=== PATIENT | female | born 1985 | race Caucasian/White ===

== ENCOUNTER 2017-02-19 02:22 | Emergency (ER) | payer BC, OTHER ==
[2017-02-19] MEDS ORDERED: Sodium Chloride 0.9% 2.5 ML Syringe FLUSH PRN (02:47)
[2017-02-19] MEDS ORDERED: Sodium Chloride 0.9% 1,000 ML IV ONE (02:47)
[2017-02-19] MEDS ORDERED: Sodium Chloride 0.9% 10 ML Syringe FLUSH PRN (02:47)
[2017-02-19] MEDS ORDERED: Ondansetron 4 MG/2 ML SDV IVPUSH ONE (02:47)
[2017-02-19] MEDS ORDERED: Pantoprazole 40 MG Vial IVPUSH ONE (02:51)
--- NOTE | 2017-02-19 03:03 | EDM.PDOC ---
ED HPI GENERAL MEDICAL PROBLEM - General Chief Complaint: Behavioral/Psych Stated Complaint: ETOH AND PILLS Time Seen by Provider: 02/19/17 02:32 - History of Present Illness INITIAL COMMENTS - FREE TEXT/NARRATIVE: HISTORY AND PHYSICAL: History of present illness: The patient is a 31-year-old female who presents with police and her best friend expressing suicidal ideation and drinking all afternoon and evening and taking an intentional overdose of ibuprofen. The patient states she did take # 250 tablets of 200 mg of ibuprofen about 1:30 this morning ; initially she told the nurse that it was over many hours she took this amount of medication but on my conversation she said she took it in a very short period of time. She states that she took his overdose right before she called her friend and she called her at 1:30 AM. She has had several episodes of vomiting since that time and says she feels nauseated and sick to her stomach. She says she's had multiple cocktails of alcoholic beverages throughout the day starting in the afternoon and through the evening. The patient says that she follows here at [facility] with Dr. Hudson and has been on Wellbutrin for over a year. She was placed on this for depression and this child is currently 1-year- old. She states she has an appointment with Dr. Hudson on Tuesday but she doesn't feel that the medication is helping her much and she thinks she is having trouble focusing and might need Adderall. With tonight's events she denies co- ingestion of other medications. When directly asked if she took this in attempt to harm herself she states "yes". She told the nurse privately that she if she had the opportunity she would "hang herself" but she did not choose to do that because her son is at home and she doesn't want him to see that. She also told the nurse that if the police detective and her best friend are present in the room but should also openly state that she wants to hurt herself. With my questioning she's been somewhat evasive. According to her best friend at bedside she knew she was having trouble with depression but approximately 2 weeks ago she got a phone call, when the patient was out of town at a wedding, and the patient spoke to her expressing suicidal ideation for the first time. The friend has been very worried about her clinical state since that time realize it was accelerated this evening with tonight the events. Initially the patient did not want to come for treatment by her best friend convinced her that she needed help. The patient states she's been eating and drinking normally without any nausea vomiting or diarrhea preceding these events and has had no fever chills chest pain shortness of breath or upper respiratory symptoms. She states she has an IUD and denies . She denies any recent trauma and has no head neck or back pain Patient states she has been compliant with her Wellbutrin and took her last pill today and needs to get a refill. The friend states that she thinks that the patient has been taking some of the boyfriend's Adderall sporadically but not all. This a been over the last few weeks. Review of systems: As per history of present illness and below otherwise all systems reviewed and negative. Past medical history: As per history of present illness and as reviewed below otherwise noncontributory. Surgical history: As per history of present illness and as reviewed below otherwise noncontributory. Social history: No reported history of drug or alcohol abuse. Family history: As per history of present illness and as reviewed below otherwise noncontributory. Physical exam: General: Well-developed well-nourished female who is nontoxic and sulfa alcohol on her breath. She ambulates without ataxia moving all extremities and is cooperative. Vital signs have been noted by me HEENT: Atraumatic, normocephalic, pupils reactive, sclera are injected, negative for conjunctival pallor or scleral icterus, mucous membranes moist, throat clear, neck supple, nontender, trachea midline. Lungs: Clear to auscultation, breath sounds equal bilaterally, chest nontender. Heart: S1S2, regular, negative for clicks, rubs, or JVD. Abdomen: Soft, nondistended, nontender. Negative for masses or hepatosplenomegaly. Negative for costovertebral tenderness. Pelvis: Stable nontender. Genitourinary: Deferred. Rectal: Deferred. Extremities: Atraumatic, negative for cords or calf pain. Neurovascular unremarkable. Full range of motion without any defects or deficits Neuro: Awake, alert, oriented. Patient speaks with slight slurred but is otherwise cooperative and neurologically intact. Motor and sensory unremarkable throughout. Exam nonfocal. Back: There are no midline step-offs or defects of the cervical thoracic or lumbar spine no posterior rib tenderness. Diagnostics: EKG CBC CMP EtOH level Tylenol aspirin levels TSH UA UCG UDS Therapeutics: IV fluids Zofran Protonix 0252: Poison control was contacted and agrees with my care plan. They recommended supportive measures as we are instituting and states that in high doses of nonsteroidal anti-inflammatories can cause a metabolic acidosis and sometimes the seizures. He recommends medical observation for 4-6 hours and a repeat chemistry profile several hours after my first one to reassess for any metabolic acidosis. 0342: Case was discussed with the psychiatrist at [facility] in [place], Dr. Lane; she accepts the patient for transfer and is aware of the lab tests that we have performed. She is also aware of the pending urine tests and TSH. 0348: Case was discussed with the ER physician Dr. Rodriguez who also accepts the patient for transfer to the ER. He is aware of poison control's recommendation to repeat the chemistry profile on arrival to assure that no acidosis is progressing. I've also discussed all testing results with the patient and brother and best friend at bedside. They're aware of the care plan for transfer and the patient states that she understands this but is intermittently sleeping throughout the course of my conversation. We are currently going to straight catheter the patient for the urine sample and we will forward those results when available. Ambulance has been contacted for transfer. Impression: Intentional overdose of ibuprofen with alcohol intoxication, suicidal ideation history of depression Definitive disposition and diagnosis as appropriate pending reevaluation and review of above. - Related Data Allergies Allergy/AdvReac Type Severity Reaction Status Date / Time diphenhydramine HCl Allergy Difficulty Verified 02/19/17 02:27 [From Benadryl] Breathing Sulfa (Sulfonamide Allergy Hives Verified 02/19/17 02:27 Antibiotics) Home Meds: Home Meds LORazepam 0.5 mg PO ASDIRECTED PRN 05/20/16 [History] buPROPion [Wellbutrin SR] 300 mg PO DAILY 05/20/16 [History] Ibuprofen [Motrin] 800 mg PO ASDIRECTED PRN 02/19/17 [History] valACYclovir [Valtrex] 500 mg PO DAILY 02/19/17 [History] Past Medical History HEENT History: Reports: None Cardiovascular History: Reports: None Respiratory History: Reports: None, Other (See Below) Other Respiratory History: pulmonary infiltrates Gastrointestinal History: Reports: None Genitourinary History: Reports: None 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 OB/BYN History: IUD, post Musculoskeletal History: Reports: None Neurological History: Reports: None Psychiatric History: Reports: Anxiety, Depression, Other (See Below) Other Psychiatric History: post psychosis Endocrine/Metabolic History: Reports: None Hematologic History: Reports: Anemia Dermatologic History: Reports: None - Infectious Disease History Infectious Disease History: Reports: None - Past Surgical History Female Surgical History: Reports: D&C Endocrine Surgical History: Reports: None Social & Family History - Family History Family Medical History: Noncontributory Cardiac: Reports: ND OBGYN: Reports: Oncologic: Reports: Cervix, Lung - Tobacco Use Smoking Status *Q: Former Smoker Used Tobacco, but Quit: Yes Month Tobacco Last Used: 1 year ago Second Hand Smoke Exposure: No - Recreational Drug Use Recreational Drug Use: No ED ROS GENERAL - Review of Systems Review Of Systems: ROS reveals no pertinent complaints other than HPI. ED EXAM, GENERAL - Physical Exam Exam: See Below (See dictation) Course - Vital Signs Last Recorded V/S: Last Vital Signs Temp 36.6 C 02/19/17 02:27 Pulse 86 02/19/17 03:32 Resp 16 02/19/17 03:32 BP 114/66 02/19/17 03:32 Pulse Ox 100 02/19/17 03:32 - Orders/Labs/Meds Orders: Active Orders 24 hr Category Date Time Status Blood Glucose Check, Bedside [RC] ONETIME Care 02/19/17 02:46 Active EKG Documentation Completion [RC] STAT Care 02/19/17 02:46 Active DRUG SCREEN, URINE [URCHEM] Stat Lab 02/19/17 02:47 Uncollected HCG QUALITATIVE,URINE [URCHEM] Stat Lab 02/19/17 02:47 Uncollected UA W/MICROSCOPIC [URIN] Stat Lab 02/19/17 02:47 Uncollected Sodium Chloride 0.9% [Saline Flush] Med 02/19/17 02:47 Active 10 ml FLUSH ASDIRECTED PRN Sodium Chloride 0.9% [Saline Flush] Med 02/19/17 02:47 Active 2.5 ml FLUSH ASDIRECTED PRN Saline Lock Insert [OM.PC] Stat Oth 02/19/17 02:46 Ordered Medication Orders Sodium Chloride (Saline Flush) 10 ml FLUSH ASDIRECTED PRN PRN Reason: Keep Vein Open Last Admin: 02/19/17 02:58 Dose: 10 ml Sodium Chloride (Saline Flush) 2.5 ml FLUSH ASDIRECTED PRN PRN Reason: Keep Vein Open Last Admin: 02/19/17 02:58 Dose: 2.5 ml Labs: Laboratory Tests 02/19/17 02/19/17 Range/Units 02:57 02:57 WBC 8.64 (4.0-11.0) K/uL RBC 4.63 (4.30-5.90) M/uL Hgb 13.3 (12.0-16.0) g/dL Hct 39.9 (36.0-46.0) % MCV 86.2 (80.0-98.0) fL MCH 28.7 (27.0-32.0) pg MCHC 33.3 (31.0-37.0) g/dL RDW Std Deviation 41.7 (28.0-62.0) fl RDW Coeff of Katie 13 (11.0-15.0) % Plt Count 425 H (150-400) K/uL MPV 9.70 (7.40-12.00) fL Neut % (Auto) 57.4 (48.0-80.0) % Lymph % (Auto) 35.3 (16.0-40.0) % [place] % (Auto) 5.7 (0.0-15.0) % Eos % (Auto) 1.4 (0.0-7.0) % Baso % (Auto) 0.2 (0.0-1.5) % Neut # (Auto) 5.0 (1.4-5.7) K/uL Lymph # (Auto) 3.1 H (0.6-2.4) K/uL [place] # (Auto) 0.5 (0.0-0.8) K/uL Eos # (Auto) 0.1 (0.0-0.7) K/uL Baso # (Auto) 0.0 (0.0-0.1) K/uL Nucleated RBC % 0.0 /100WBC Nucleated RBCs # 0 K/uL Sodium 142 (136-146) mmol/L Potassium 3.4 L (3.5-5.1) mmol/L Chloride 106 (98-110) mmol/L Carbon Dioxide 20 L (21-31) mmol/L BUN 8 (6.0-23.0) mg/dL Creatinine 0.9 (0.6-1.5) mg/dL Est Cr Clr Drug Dosing TNP Estimated GFR (MDRD) > 60.0 ml/min Glucose 98 (60-110) mg/dL Calcium 9.0 (8.8-10.8) mg/dL Total Bilirubin 0.3 (0.1-1.5) mg/dL AST 18 (5-40) IU/L ALT 21 (8-54) IU/L Alkaline Phosphatase 50 (40-150) Total Protein 7.7 (6.0-8.0) g/dL Albumin 4.8 (3.5-5.0) g/dL Globulin 2.9 (2.0-3.5) g/dL Albumin/Globulin Ratio 1.7 (1.3-2.8) TSH 3rd Generation 2.30 (0.47-5.0) uIU/mL Salicylates < 5.0 (0-20) mg/dL Acetaminophen < 3.0 ug/mL Ethyl Alcohol 149.4 mg/dL Meds: Medications Generic Name Dose Route Start Last Admin Trade Name Freq PRN Reason Stop Dose Admin Sodium Chloride 10 ml 02/19/17 02:47 02/19/17 02:58 Saline Flush FLUSH 10 ml ASDIRECTED PRN Administration Keep Vein Open Sodium Chloride 2.5 ml 02/19/17 02:47 02/19/17 02:58 Saline Flush FLUSH 2.5 ml ASDIRECTED PRN Administration Keep Vein Open Discontinued Medications Generic Name Dose Route Start Last Admin Trade Name Freq PRN Reason Stop Dose Admin Sodium Chloride 1,000 mls @ 999 mls/hr 02/19/17 02:47 02/19/17 02:58 Normal Saline IV 02/19/17 03:47 999 mls/hr STAT ONE Administration Ondansetron HCl 4 mg 02/19/17 02:47 02/19/17 02:59 Zofran IVPUSH 02/19/17 02:48 4 mg ONETIME ONE Administration Pantoprazole Sodium 80 mg 02/19/17 02:51 02/19/17 02:59 Protonix Iv IVPUSH 02/19/17 02:52 80 mg .BOLUS ONE Administration Departure - Departure Time of Disposition: 04:00 Disposition: DC/Tfer to Psych Hosp/Unit 65 Condition: good Clinical Impression: Alcohol intoxication Qualifiers: Complication of substance-induced condition: uncomplicated Qualified Code(s): F10.920 - Alcohol use, unspecified with intoxication, uncomplicated Drug overdose, intentional Qualifiers: Encounter type: initial encounter Qualified Code(s): T50.902A - Poisoning by unspecified drugs, medicaments and biological substances, intentional self-harm , initial encounter - Discharge Information Forms: ED Department Discharge - My Orders Last 24 Hours: My Active Orders 02/19/17 02:46 Blood Glucose Check, Bedside [RC] ONETIME EKG Documentation Completion [RC] STAT Saline Lock Insert [OM.PC] Stat 02/19/17 02:47 DRUG SCREEN, URINE [URCHEM] Stat HCG QUALITATIVE,URINE [URCHEM] Stat UA W/MICROSCOPIC [URIN] Stat Sodium Chloride 0.9% [Saline Flush] 10 ml FLUSH ASDIRECTED PRN Sodium Chloride 0.9% [Saline Flush] 2.5 ml FLUSH ASDIRECTED PRN - Assessment/Plan Last 24 Hours: My Active Orders 02/19/17 02:46 Blood Glucose Check, Bedside [RC] ONETIME EKG Documentation Completion [RC] STAT Saline Lock Insert [OM.PC] Stat 02/19/17 02:47 DRUG SCREEN, URINE [URCHEM] Stat HCG QUALITATIVE,URINE [URCHEM] Stat UA W/MICROSCOPIC [URIN] Stat Sodium Chloride 0.9% [Saline Flush] 10 ml FLUSH ASDIRECTED PRN Sodium Chloride 0.9% [Saline Flush] 2.5 ml FLUSH ASDIRECTED PRN
[2017-02-19 03:24] LABS: CHLORIDE,CL 106 mmol/L (98-110); SODIUM,NA 142 mmol/L (136-146)
[2017-02-19 03:29] LABS: ACETAMINOPHEN < 3.0 ug/mL
[2017-02-19 04:13] VITALS: BP 110/67
[2017-02-19] MEDS ORDERED: Sodium Chloride 0.9% 1,000 ML IV SCH (04:15)
== END 2017-02-19 04:58 ==
LOC: MW.ED 02:22
DX: T39.312A Poisoning by propionic acid derivatives, intentional self-harm, initial encounter (principal); F10.129 Alcohol abuse with intoxication, unspecified; F41.8 Other specified anxiety disorders; Z88.8 Allergy status to other drugs, medicaments and biological substances; Z79.899 Other long term (current) drug therapy; Z87.891 Personal history of nicotine dependence
CPT/HCPCS: 36415; 80053; 80305; 81001; 81025; 82962; 84443; 85025; 93005; 96361; 96374; 96375; 99285; C9113; G0480; J2405; J7040

== ENCOUNTER 2019-11-06 06:33 | Day surgery (SDC) | payer OTHER ==
[2019-11-06] MEDS ORDERED: Midazolam 1 MG/ML 2 ML SDV ONE (07:24)
[2019-11-06] MEDS ORDERED: fentaNYL 100 MCG/2 ML SDV ONE (07:24)
[2019-11-06] MEDS ORDERED: Propofol 200 MG/20 ML SDV ONE (07:24)
[2019-11-06] MEDS ORDERED: Ondansetron 4 MG/2 ML SDV ONE (07:28)
[2019-11-06] MEDS ORDERED: Dexamethasone 4 MG/ML 5 ML MDV ONE (07:28)
[2019-11-06] MEDS ORDERED: Ketorolac 30 MG/ML SDV ONE (07:28)
--- NOTE | 2019-11-06 07:34 | PCM.PREANE ---
Preanesthetic Assessment - Anesthesia/Transfusion/Family Hx Anesthesia History: Prior Anesthesia Without Reaction Family History of Anesthesia Reaction: No Transfusion History: Prior Transfusion Without Reaction - Review of Systems General: No Symptoms Pulmonary: No Symptoms Cardiovascular: No Symptoms Gastrointestinal: No Symptoms Neurological: No Symptoms Other: Reports: Anxiety - Physical Assessment NPO Status Date: 11/05/19 Vital Signs: Last Vital Signs Temp 97.5 F 11/06/19 06:47 Pulse 93 11/06/19 06:47 Resp 14 11/06/19 06:47 BP 109/70 11/06/19 06:47 Pulse Ox 97 11/06/19 06:47 Height: 5 ft 3.5 in Weight: 77.111 kg ASA Class: 2 Mental Status: Alert & Oriented x3 Airway Class: Mallampati = 2 Dentition: Reports: Ada(s) ROM/Head Extension: Full Lungs: Clear to Auscultation, Normal Respiratory Effort Cardiovascular: Regular Rate, Regular Rhythm - Lab Values: Laboratory Last Values WBC 8.91 K/uL (4.0-11.0) 11/05/19 10:50 RBC 3.73 M/uL (4.30-5.90) L 11/05/19 10:50 Hgb 11.0 g/dL (12.0-16.0) L 11/05/19 10:50 Hct 32.5 % (36.0-46.0) L 11/05/19 10:50 MCV 87.1 fL (80.0-98.0) 11/05/19 10:50 MCH 29.5 pg (27.0-32.0) 11/05/19 10:50 MCHC 33.8 g/dL (31.0-37.0) 11/05/19 10:50 RDW Std Deviation 39.6 fl (28.0-62.0) 11/05/19 10:50 RDW Coeff of Katie 12 % (11.0-15.0) 11/05/19 10:50 Plt Count 319 K/uL (150-400) 11/05/19 10:50 MPV 8.90 fL (7.40-12.00) 11/05/19 10:50 Nucleated RBC % 0.0 /100WBC 11/05/19 10:50 Nucleated RBCs # 0 K/uL 01/27/20 10:50 Blood Type B POSITIVE 11/05/19 10:50 Antibody Screen NEGATIVE 11/05/19 10:50 - Allergies Allergies/Adverse Reactions: Allergies Allergy/AdvReac Type Severity Reaction Status Date / Time diphenhydramine HCl Allergy Difficulty Verified 11/06/19 06:52 [From Benadryl] Breathing Sulfa (Sulfonamide Allergy Hives Verified 11/02/19 11:56 Antibiotics) - Blood Blood Available: No - Anesthesia Plan Pre-Op Medication Ordered: None - Acknowledgements Anesthesia Type Planned: General Anesthesia Pt an Appropriate Candidate for the Planned Anesthesia: Yes Alternatives and Risks of Anesthesia Discussed w Pt/Guardian: Yes Pt/Guardian Understands and Agrees with Anesthesia Plan: Yes Additional Comments: PMH: anxiety- took lorazepam this am, adhd, migrine PLAN: ga/lma with iv toradol PreAnesthesia Questionnaire HEENT History: Reports: None Cardiovascular History: Reports: None Respiratory History: Reports: Other (See Below) Other Respiratory History: H&P states hx of pulmonary infiltrates Gastrointestinal History: Reports: None Genitourinary History: Reports: None 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: Musculoskeletal History: Reports: None Neurological History: Reports: None Psychiatric History: Reports: ADHD, Anxiety, Depression, Other (See Below) Other Psychiatric History: hx post psychosis Endocrine/Metabolic History: Reports: None Hematologic History: Reports: Anemia, Blood Transfusion(s) Immunologic History: Reports: None Oncologic (Cancer) History: Reports: None Dermatologic History: Reports: None - Infectious Disease History Infectious Disease History: Reports: None - Past Surgical History Head Surgeries/Procedures: Reports: None HEENT Surgical History: Reports: None Cardiovascular Surgical History: Reports: None Respiratory Surgical History: Reports: None GI Surgical History: Reports: None Female Surgical History: Reports: D&C Other Female Surgeries/Procedures: hx laparoscopy, hx molar Endocrine Surgical History: Reports: None Neurological Surgical History: Reports: None Musculoskeletal Surgical History: Reports: None Oncologic Surgical History: Reports: None Dermatological Surgical History: Reports: None - SUBSTANCE USE Smoking Status *Q: Former Smoker Tobacco Use Within Last Twelve Months: No - HOME MEDS Home Medications: Home Meds LORazepam 0.5 mg PO ASDIRECTED PRN 05/20/16 [History] buPROPion [Wellbutrin SR] 300 mg PO DAILY 05/20/16 [History] valACYclovir [Valtrex] 500 mg PO DAILY 02/19/17 [History] Dextroamphetamine/Amphetamine [Adderall 10 mg Tablet] 10 mg PO BID 11/02/19 [ History] - CURRENT (IN HOUSE) MEDS Current Meds: Current Medications Discontinued Medications Dexamethasone (Dexamethasone) Confirm Administered Dose 20 mg .ROUTE .STK-MED ONE Stop: 11/06/19 07:29 Fentanyl (Sublimaze) Confirm Administered Dose 100 mcg .ROUTE .STK-MED ONE Stop: 11/06/19 07:25 Ketorolac Tromethamine (Toradol) Confirm Administered Dose 30 mg .ROUTE .STK- MED ONE Stop: 11/06/19 07:29 Lidocaine HCl (Xylocaine-Mpf 1%) Confirm Administered Dose 5 ml .ROUTE .STK-MED ONE Stop: 11/06/19 07:29 Midazolam HCl (Versed 1 Mg/Ml) Confirm Administered Dose 2 mg .ROUTE .STK-MED ONE Stop: 11/06/19 07:25 Ondansetron HCl (Zofran) Confirm Administered Dose 4 mg .ROUTE .STK-MED ONE Stop: 11/06/19 07:29 Propofol (Diprivan 20 Ml) Confirm Administered Dose 200 mg .ROUTE .STK-MED ONE Stop: 11/06/19 07:25
[2019-11-06] MEDS ORDERED: Methylergonovine 0.2 MG/1 ML Amp ONE (08:17)
--- NOTE | 2019-11-06 08:40 | PCM.OPNOTE ---
- General Post-Op/Procedure Note Date of Surgery/Procedure: 11/06/19 Operative Procedure(s): suction dilatation and curettage Findings: preop uterus 10 weeks size, boggy, sono thickened heterogenous tissue in endometrium. postop 7 weeks, firm, ultrasound no tissue, small blood in endometrium. Pre Op Diagnosis: missed Post-Op Diagnosis: Same Anesthesia Technique: General LMA Primary Surgeon: Mima Centeno Anesthesia Provider: Nishi Quesada Pathology: products of conception Fluid Replacement, Intraop: 800 EBL in mLs: 100 Complications: None Known Condition: Good
[2019-11-06] MEDS ORDERED: Atropine 0.1 MG/ML 10 ML Syringe IVPUSH PRN ×2 (08:44)
[2019-11-06] MEDS ORDERED: Albuterol 0.083% 2.5 MG/3 ML Neb Soln NEB PRN (08:44)
[2019-11-06] MEDS ORDERED: fentaNYL 100 MCG/2 ML SDV IVPUSH PRN (08:44)
[2019-11-06] MEDS ORDERED: Naloxone 0.4 MG/ML Syringe IVPUSH PRN (08:44)
[2019-11-06] MEDS ORDERED: 50% Dextrose in Water 50 ML Syringe IVPUSH PRN (08:44)
[2019-11-06] MEDS ORDERED: EPINEPHrine 1:10,000 1 MG/10 ML Syringe IVPUSH PRN (08:44)
[2019-11-06] MEDS ORDERED: HYDROmorphone 2 MG/ML Syringe IVPUSH PRN (08:45)
--- NOTE | 2019-11-06 09:27 | PCM.POSTAN ---
POST ANESTHESIA ASSESSMENT - MENTAL STATUS Mental Status: Alert, Oriented - VITAL SIGNS Vital Signs: Last Vital Signs Temp 97.0 F 11/06/19 09:10 Pulse 81 11/06/19 09:10 Resp 14 11/06/19 09:10 BP 116/73 11/06/19 09:10 Pulse Ox 98 11/06/19 09:10 - RESPIRATORY Respiratory Status: Respiratory Rate WNL, Airway Patent, O2 Saturation Stable - CARDIOVASCULAR CV Status: Pulse Rate WNL, Blood Pressure Stable - GASTROINTESTINAL GI Status: No Symptoms - POST OP HYDRATION Hydration Status: Adequate & Stable
--- NOTE | 2019-11-06 10:00 | PCM48HPAN ---
Post Anesthesia Note - EVALUATION WITHIN 48HRS OF ANESTHETIC Vital Signs in Normal Range: Yes Patient Participated in Evaluation: Yes Respiratory Function Stable: Yes Airway Patent: Yes Cardiovascular Function Stable: Yes Hydration Status Stable: Yes Pain Control Satisfactory: Yes Nausea and Vomiting Control Satisfactory: Yes Mental Status Recovered: Yes Vital Signs: Last Vital Signs Temp 97.0 F 11/06/19 09:10 Pulse 81 11/06/19 09:10 Resp 14 11/06/19 09:10 BP 116/73 11/06/19 09:10 Pulse Ox 98 11/06/19 09:10
[2019-11-06 10:32] VITALS: BP 123/74; PULSE 79
--- NOTE | 2019-11-06 10:45 | OR ---
SURGEON: Mima Centeno M.D. DATE OF PROCEDURE: 11/06/2019 PREOPERATIVE DIAGNOSES: Missed , abnormally falling HCG level. POSTOPERATIVE DIAGNOSES: Missed , abnormally falling HCG level. PROCEDURE: Suction dilatation and curettage. PRIMARY SURGEON: Mima Centeno MD. ANESTHESIA: General LMA. ESTIMATED BLOOD LOSS: 100 mL. FLUIDS: 800 mL of crystalloid. FINDINGS: Preoperatively, the uterus was 10-week size, boggy, sounded to 9 cm. Cervix was open, easily accepted a 12 mm dilator without any resistance. Postoperatively, the uterus was firm, 7-week size. Under ultrasound guidance, initially there was heterogeneous thickened tissue within the endometrium. Postoperatively, the endometrium was thin, but with some blood in the endometrial canal. COMPLICATIONS: None known. DISPOSITION: Stable to recovery. BRIEF HISTORY: This is a 34-year-old female. She presents for care with a complaint of leaking fluid and bleeding. HCG level was 50,000. Ultrasound showed thickened heterogeneous endometrium, no discrete gestational sac. HCG was repeated and was 48,000. Given the fact that she has a remote history of a molar , I did recommend proceeding with suction dilatation and curettage due to being able to get a tissue diagnosis, and she concurred. Again, due to the history of molar , I will avoid sharp curettage. Surgical risks were discussed including bleeding; infection; injury to bowel, bladder, blood vessels, uterus, or other organs; risk of Asherman syndrome; and risk of anesthesia as well as risk of thromboembolism. Understanding all these risks, she does desire to proceed. DESCRIPTION OF PROCEDURE: With the patient in dorsal lithotomy position, under general LMA analgesia, the perineum was prepped with Betadine and draped in the usual fashion for vaginal surgery. The bladder was drained. SCDs were in place and an appropriate time- out was held. Under ultrasound guidance, the procedure was performed. Bimanual examination revealed findings as noted above. Speculum was placed in the vagina. Cervix was grasped with an Allis clamp. The uterus sounded to 9 cm and a 12 mm suction curette was placed to the uterine fundus and retracted repetitively until all tissue was removed. Based on ultrasound guidance, a bimanual examination was performed. There was a small amount of bleeding. Suction and curettage were repeated one additional time. Again, ultrasound showed only blood in the endometrial canal. At this point, Methergine was given. The uterus was firm. There was minimal bleeding. All the instruments removed from the vagina. Final sponge, needle, and instrument counts were reported as correct. There were no known complications. The patient was transferred to Recovery in good condition. EMEKA ANGUIANO /[id number]
== END 2019-11-06 10:41 | disposition home or self-care (01) ==
LOC: MW.SDS 06:33
PROVIDERS: ATTEND Obstetrics & Gynecology
DX: O02.1 Missed abortion (principal); F32.9 Major depressive disorder, single episode, unspecified; F41.9 Anxiety disorder, unspecified; G43.909 Migraine, unspecified, not intractable, without status migrainosus; D64.9 Anemia, unspecified; Z87.891 Personal history of nicotine dependence; Z79.899 Other long term (current) drug therapy; Z88.2 Allergy status to sulfonamides; Z88.8 Allergy status to other drugs, medicaments and biological substances
CPT/HCPCS: 36415; 59820; 76998; 85027; 86850; 86900; 86901; J1100; J1170; J1885; J2001; J2210; J2250; J2405; J2704; J3010; 01965

== ENCOUNTER 2020-10-15 12:11 | Inpatient (IN) | payer OTHER ==
[2020-10-15] MEDS ORDERED: Carboprost Tromethamine 250 MCG/1 ML Amp IM PRN (12:44)
[2020-10-15] MEDS ORDERED: Misoprostol 200 MCG Tab PO PRN (12:44)
[2020-10-15] MEDS ORDERED: Sodium Chloride 0.9% 2.5 ML Syringe FLUSH PRN (12:44)
[2020-10-15] MEDS ORDERED: Butorphanol 1 MG/ML SDV IVPUSH PRN (12:44)
[2020-10-15] MEDS ORDERED: Sodium Chloride 0.9% 10 ML Syringe FLUSH PRN (12:44)
[2020-10-15] MEDS ORDERED: Sodium Chloride 0.9% 10 ML SDV IV PRN (12:44)
[2020-10-15] MEDS ORDERED: Water For Irrigation,Sterile 1,000 ML Container IRR PRN (12:44)
[2020-10-15] MEDS ORDERED: Nalbuphine 10 MG/1 ML Vial IVPUSH PRN (12:44)
[2020-10-15] MEDS ORDERED: Tranexamic Acid 1,000 MG in Sodium Chloride 0.9% 100 ML IV PRN (12:44)
[2020-10-15] MEDS ORDERED: Methylergonovine 0.2 MG/1 ML Amp IM PRN (12:44)
[2020-10-15] MEDS ORDERED: Lidocaine 1% 50 ML MDV INJECT PRN (12:44)
[2020-10-15] MEDS ORDERED: Oxytocin/0.9 % Sodium Chloride 30 UNIT/500 ML BAG IV SCH ×2 (12:45→13:45)
[2020-10-15] MEDS: Lactated Ringers 1,000 ML IV SCH ×4 (12:45→19:52)
[2020-10-15] MEDS ORDERED: fentaNYL 100 MCG/2 ML SDV ONE ×2 (17:49→20:35)
[2020-10-15] MEDS ORDERED: Bupivicaine/fentaNYL/NS 250 ML ONE (17:50)
[2020-10-15] MEDS ORDERED: Bupivacaine 0.25% 10 ML SDV ONE (17:51)
--- NOTE | 2020-10-15 18:23 | PCM.PREANE ---
Preanesthetic Assessment - Anesthesia/Transfusion/Family Hx Anesthesia History: Prior Anesthesia Without Reaction Family History of Anesthesia Reaction: No Transfusion History: Prior Transfusion Without Reaction - Review of Systems General: No Symptoms Pulmonary: No Symptoms Cardiovascular: No Symptoms Gastrointestinal: Abdominal Pain Neurological: No Symptoms Other: Reports: None - Physical Assessment Height: 5 ft 3 in Weight: 100.698 kg ASA Class: 2 Mental Status: Alert & Oriented x3 Airway Class: Mallampati = 2 Dentition: Reports: Normal Dentition ROM/Head Extension: Full Lungs: Clear to Auscultation, Normal Respiratory Effort - Lab Values: Laboratory Last Values WBC 10.63 K/uL (4.0-11.0) 10/15/20 12:34 RBC 3.96 M/uL (4.30-5.90) L 10/15/20 12:34 Hgb 10.2 g/dL (12.0-16.0) L 10/15/20 12:34 Hct 32.7 % (36.0-46.0) L 10/15/20 12:34 MCV 82.6 fL (80.0-98.0) 10/15/20 12:34 MCH 25.8 pg (27.0-32.0) L 10/15/20 12:34 MCHC 31.2 g/dL (31.0-37.0) 10/15/20 12:34 RDW Std Deviation 46.3 fl (28.0-62.0) 10/15/20 12:34 RDW Coeff of Katie 17 % (11.0-15.0) H 10/15/20 12:34 Plt Count 259 K/uL (150-400) 10/15/20 12:34 MPV 10.50 fL (7.40-12.00) 10/15/20 12:34 Nucleated RBC % 0.3 /100WBC 10/15/20 12:34 Nucleated RBCs # 0 K/uL 10/15/20 12:34 SARS-CoV-2 RNA (JOSE) NEGATIVE (NEGATIVE) 10/15/20 12:25 Blood Type B POSITIVE 10/15/20 12:34 Antibody Screen NEGATIVE 10/15/20 12:34 - Allergies Allergies/Adverse Reactions: Allergies Allergy/AdvReac Type Severity Reaction Status Date / Time diphenhydramine HCl Allergy Difficulty Verified 10/15/20 12:47 [From Benadryl] Breathing Sulfa (Sulfonamide Allergy Hives Verified 10/15/20 12:47 Antibiotics) - Acknowledgements Anesthesia Type Planned: Epidural Pt an Appropriate Candidate for the Planned Anesthesia: Yes Alternatives and Risks of Anesthesia Discussed w Pt/Guardian: Yes Pt/Guardian Understands and Agrees with Anesthesia Plan: Yes PreAnesthesia Questionnaire HEENT History: Reports: None Cardiovascular History: Reports: None Respiratory History: Reports: None Other Respiratory History: H&P states hx of pulmonary infiltrates Gastrointestinal History: Reports: Other (See Below) Other Gastrointestinal History: cholestasis during 2016 Genitourinary History: Reports: None 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: Musculoskeletal History: Reports: None Neurological History: Reports: Migraines Other Neuro History: migraines since 16 years old Psychiatric History: Reports: ADHD, Anxiety, Depression, Other (See Below) Other Psychiatric History: hx post psychosis Endocrine/Metabolic History: Reports: None Hematologic History: Reports: Anemia, Blood Transfusion(s) Immunologic History: Reports: None Oncologic (Cancer) History: Reports: None Dermatologic History: Reports: None - Infectious Disease History Infectious Disease History: Reports: Herpes - Past Surgical History Head Surgeries/Procedures: Reports: None HEENT Surgical History: Reports: None Cardiovascular Surgical History: Reports: None Respiratory Surgical History: Reports: None GI Surgical History: Reports: None Female Surgical History: Reports: D&C Other Female Surgeries/Procedures: hx laparoscopy, hx molar Endocrine Surgical History: Reports: None Neurological Surgical History: Reports: None Musculoskeletal Surgical History: Reports: None Oncologic Surgical History: Reports: None Dermatological Surgical History: Reports: None - SUBSTANCE USE Tobacco Use Status *Q: Former Tobacco User Tobacco Use Within Last Twelve Months: No Second Hand Smoke Exposure: No Recreational Drug Use History: No - HOME MEDS Home Medications: Home Meds Acyclovir 400 mg PO BID 10/15/20 [History] Omeprazole Magnesium [Prilosec Otc] 1 tab PO DAILY 10/15/20 [History] Pnv,Calcium 72/Iron,Carb/Folic [ Plus Iron Tablet] 1 tab PO DAILY 10/15/20 [History] Sertraline HCl 1 tab PO DAILY 10/15/20 [History] - CURRENT (IN HOUSE) MEDS Current Meds: Current Medications Butorphanol Tartrate (Stadol) 1 mg IVPUSH Q1H PRN PRN Reason: Pain Carboprost Tromethamine (Hemabate Ds) 250 mcg IM ASDIRECTED PRN PRN Reason: Post Hemorrhage Oxytocin/Sodium Chloride (Oxytocin 30 Unit/500 Ml-Ns) 30 unit in 500 mls @ 500 mls/hr IV TITRATE DASHA Tranexamic Acid 1,000 mg/ (Sodium Chloride) 110 mls @ 660 mls/hr IV ONETIME PRN PRN Reason: Bleeding Lactated Ringer's (Ringers, Lactated) 1,000 mls @ 150 mls/hr IV ASDIRECTED DASHA Last Admin: 10/15/20 18:16 Dose: 150 mls/hr Documented by: Oxytocin/Sodium Chloride (Oxytocin 30 Unit/500 Ml-Ns) 30 unit in 500 mls @ 2 mls/hr IV TITRATE DASHA; Protocol Last Titration: 10/15/20 16:40 Dose: 10 munits/min, 10 mls/hr Documented by: Lidocaine HCl (Xylocaine 1%) 50 ml INJECT ONETIME PRN PRN Reason: Laceration repair Methylergonovine Maleate (Methergine) 0.2 mg IM ASDIRECTED PRN PRN Reason: Post Hemorrhage Misoprostol (Cytotec) 200 mcg PO ONETIME PRN PRN Reason: Post Hemorrhage Nalbuphine HCl (Nubain) 10 mg IVPUSH Q1H PRN PRN Reason: Pain (severe 7-10) Sodium Chloride (Saline Flush) 10 ml FLUSH ASDIRECTED PRN PRN Reason: Keep Vein Open Sodium Chloride (Saline Flush) 2.5 ml FLUSH ASDIRECTED PRN PRN Reason: Keep Vein Open Sodium Chloride (Normal Saline) 10 ml IV ASDIRECTED PRN PRN Reason: IV Use Sterile Water (Sterile Water For Irrigation) 1,000 ml IRR ASDIRECTED PRN PRN Reason: delivery Discontinued Medications Bupivacaine HCl (Sensorcaine-Mpf 0.25%) Confirm Administered Dose 10 ml .ROUTE .STK-MED ONE Stop: 10/15/20 17:52 Fentanyl (Sublimaze) Confirm Administered Dose 100 mcg .ROUTE .STK-MED ONE Stop: 10/15/20 17:50 Fentanyl/Bupivacaine HCl (Fentanyl/Bupivacaine/Ns 2 Mcg-0.125% 250 Ml) Confirm Administered Dose 250 mls @ as directed .ROUTE .STK-MED ONE Stop: 10/15/20 17:51
[2020-10-15] MEDS ORDERED: Acetaminophen 500 MG Tab PO ONE (18:45)
[2020-10-15] MEDS ORDERED: Lidocaine 2% with EPINEPHrine 1:200,000 20 ML SDV ONE (20:35)
--- NOTE | 2020-10-15 20:45 | PCM.PRNOTE ---
- Free Text/Narrative Note: Anes Note I was called to restart the epidural pump for this patient. The pump was turned off earlier because of exccesive numbness and a T6 level of senory change. Patient now reports return of sensation. Epidural doses with 100 mcg fentanyl and 2 cc 2% lido with epi. Epidural infusion of 0.2% ropivicaine with 1 mcg cc fentayl was restarted. Rate is 4 cc hr with 4 cc prn bolus q 20 min. Patietn reports satisfactoy analgesia. Time with patient Michael Strickland CRNA
--- NOTE | 2020-10-15 22:32 | PCM.PRNOTE ---
- Free Text/Narrative Note: Anes Note I was called because patient reports incomplete analgesia. Epidural was topped up with 6 cc pump solution, and then pump wasset at rate of 8 cc hr with 6 cc q 20 min prn bolus. Time with patient [id number] Michael Strickland CRNA
[2020-10-16] MEDS ORDERED: Acetaminophen 500 MG Tab PO PRN (00:12)
[2020-10-16] MEDS ORDERED: Ibuprofen 400 MG Tab PO PRN (00:12)
[2020-10-16] MEDS ORDERED: Benzocaine/Menthol 20%-0.5% Spray 78 GM Cannister TOP PRN (00:12)
[2020-10-16] MEDS ORDERED: Docusate Sodium 100 MG Cap PO PRN (00:12)
[2020-10-16] MEDS ORDERED: Bisacodyl 10 MG Supp RECTAL PRN (00:12)
--- NOTE | 2020-10-16 00:20 | PCM.DEL ---
L & D Note - General Info Date of Service: 10/16/20 Mother's Due Date: 11/02/20 - Delivery Note Labor: Augmented by ARM, Induced by Oxytocin Delivery Outcome: Livebirth Delivery Method: Spontaneous Vaginal Delivery-Single Presentation: Right Occiput Anterior (MARY) Nuchal Cord: None Anesthesia Type: Epidural Episiotomy Type: None Laceration: None Cord: 3 Vessels Estimated Blood Loss: 200 Resuscitation Needed: No Score 1 min: 7 Score 5 min: 8 Delivery Comments (Free Text/Narrative):: Live female delivered at 1144pm , 7/8 - weight: 3700g - General Info Date of Service: 10/16/20 - Patient Data Weight - Most Recent: 100.698 kg Lab Results Last 24 Hours: Laboratory Results - last 24 hr 10/15/20 10/15/20 10/15/20 Range/Units 12:25 12:34 12:34 WBC 10.63 (4.0-11.0) K/uL RBC 3.96 L (4.30-5.90) M/uL Hgb 10.2 L (12.0-16.0) g/dL Hct 32.7 L (36.0-46.0) % MCV 82.6 (80.0-98.0) fL MCH 25.8 L (27.0-32.0) pg MCHC 31.2 (31.0-37.0) g/dL RDW Std Deviation 46.3 (28.0-62.0) fl RDW Coeff of Katie 17 H (11.0-15.0) % Plt Count 259 (150-400) K/uL MPV 10.50 (7.40-12.00) fL Nucleated RBC % 0.3 /100WBC Nucleated RBCs # 0 K/uL SARS-CoV-2 RNA (JOSE) NEGATIVE (NEGATIVE) Blood Type B POSITIVE Antibody Screen NEGATIVE Med Orders - Current: Current Medications Butorphanol Tartrate (Stadol) 1 mg IVPUSH Q1H PRN PRN Reason: Pain Carboprost Tromethamine (Hemabate Ds) 250 mcg IM ASDIRECTED PRN PRN Reason: Post Hemorrhage Oxytocin/Sodium Chloride (Oxytocin 30 Unit/500 Ml-Ns) 30 unit in 500 mls @ 500 mls/hr IV TITRATE DASHA Tranexamic Acid 1,000 mg/ (Sodium Chloride) 110 mls @ 660 mls/hr IV ONETIME PRN PRN Reason: Bleeding Lactated Ringer's (Ringers, Lactated) 1,000 mls @ 150 mls/hr IV ASDIRECTED DASHA Last Admin: 10/15/20 19:52 Dose: 150 mls/hr Documented by: Oxytocin/Sodium Chloride (Oxytocin 30 Unit/500 Ml-Ns) 30 unit in 500 mls @ 2 mls/hr IV TITRATE DASHA; Protocol Last Titration: 10/15/20 21:42 Dose: 18 munits/min, 18 mls/hr Documented by: Lidocaine HCl (Xylocaine 1%) 50 ml INJECT ONETIME PRN PRN Reason: Laceration repair Methylergonovine Maleate (Methergine) 0.2 mg IM ASDIRECTED PRN PRN Reason: Post Hemorrhage Misoprostol (Cytotec) 200 mcg PO ONETIME PRN PRN Reason: Post Hemorrhage Sodium Chloride (Saline Flush) 10 ml FLUSH ASDIRECTED PRN PRN Reason: Keep Vein Open Sodium Chloride (Saline Flush) 2.5 ml FLUSH ASDIRECTED PRN PRN Reason: Keep Vein Open Sodium Chloride (Normal Saline) 10 ml IV ASDIRECTED PRN PRN Reason: IV Use Sterile Water (Sterile Water For Irrigation) 1,000 ml IRR ASDIRECTED PRN PRN Reason: delivery Discontinued Medications Acetaminophen (Tylenol Extra Strength) 1,000 mg PO ONETIME ONE Stop: 10/15/20 18:46 Last Admin: 10/15/20 18:48 Dose: 1,000 mg Documented by: Bupivacaine HCl (Sensorcaine-Mpf 0.25%) Confirm Administered Dose 10 ml .ROUTE .STK-MED ONE Stop: 10/15/20 17:52 Fentanyl (Sublimaze) Confirm Administered Dose 100 mcg .ROUTE .STK-MED ONE Stop: 10/15/20 17:50 Fentanyl (Sublimaze) Confirm Administered Dose 100 mcg .ROUTE .STK-MED ONE Stop: 10/15/20 20:36 Fentanyl/Bupivacaine HCl (Fentanyl/Bupivacaine/Ns 2 Mcg-0.125% 250 Ml) Confirm Administered Dose 250 mls @ as directed .ROUTE .STK-MED ONE Stop: 10/15/20 17:51 Lidocaine/Epinephrine (Xylocaine-Mpf 2%-Epi 1:200,000) Confirm Administered Dose 20 ml .ROUTE .STK-MED ONE Stop: 10/15/20 20:36 Nalbuphine HCl (Nubain) 10 mg IVPUSH Q1H PRN PRN Reason: Pain (severe 7-10) - Problem List & Annotations (1) Vaginal delivery SNOMED Code(s): 181288483 Code(s): O80 - ENCOUNTER FOR FULL-TERM UNCOMPLICATED DELIVERY Status: Acute Current Visit: No - Problem List Review Problem List Initiated/Reviewed/Updated: Yes - My Orders Last 24 Hours: My Active Orders 10/16/20 00:12 Acetaminophen [Tylenol Extra Strength] 1,000 mg PO Q4H PRN Acetaminophen [Tylenol Extra Strength] 500 mg PO Q4H PRN Benzocaine/Menthol [Dermoplast Pain Relief 20%-0.5% Dewitt] 78 gm TOP ASDIRECTED PRN Docusate Sodium [Colace] 100 mg PO BID PRN Ibuprofen [Motrin] 400 mg PO Q4H PRN Ibuprofen [Motrin] 800 mg PO Q6H PRN Lanolin [Lansinoh HPA] See Dose Instructions TOP ASDIRECTED PRN bisacodyL [Dulcolax] 10 mg RECTAL ONETIME PRN oxyCODONE 5 mg PO Q2H PRN witch Sachin [Tucks] 1 pad TOP ASDIRECTED PRN Resuscitation Status Routine 10/16/20 00:13 Patient Status [ADT] Routine May Shower [RC] ASDIRECTED Up ad Tiana [RC] ASDIRECTED Vital Signs [RC] PER UNIT ROUTINE Assess Lochia [WOMSER] Per Unit Routine Assess Uterine Involution [WOMSER] Per Unit Routine Peripheral IV Discontinue [OM.PC] Routine 10/17/20 05:11 HEMOGLOBIN/HEMATOCRIT,HH [HEME] Timed - Assessment Assessment:: 35yo P3033 s/p , PPD 0
[2020-10-16] MEDS: Witch Hazel Medicated Pads 40/Jar TOP PRN ×2 (01:28→19:59)
[2020-10-16] MEDS: Lanolin 100% Cream 7 GM Tube TOP PRN (01:28)
[2020-10-16] MEDS: Ibuprofen 800 MG Tab PO PRN ×2 (05:18→11:08)
[2020-10-16] MEDS: Acetaminophen 500 MG Tab PO PRN ×3 (07:43→22:12)
[2020-10-16] MEDS: oxyCODONE 5 MG Tab PO PRN ×3 (07:44→22:13)
--- NOTE | 2020-10-16 07:51 | PCM48HPAN ---
Post Anesthesia Note - EVALUATION WITHIN 48HRS OF ANESTHETIC Vital Signs in Normal Range: Yes Patient Participated in Evaluation: Yes Respiratory Function Stable: Yes Airway Patent: Yes Cardiovascular Function Stable: Yes Hydration Status Stable: Yes Pain Control Satisfactory: Yes Nausea and Vomiting Control Satisfactory: Yes Mental Status Recovered: Yes Vital Signs: Last Vital Signs Temp 37.1 C 10/16/20 02:38 Pulse 86 10/16/20 02:38 Resp 16 10/16/20 02:38 BP 115/52 L 10/16/20 02:38 Pulse Ox 95 10/16/20 02:38
--- NOTE | 2020-10-16 08:08 | OR ---
SURGEON: CHARY CONNER DATE OF PROCEDURE: 10/16/2020 PREOPERATIVE DIAGNOSIS: A 35-year-old, G6, P2-0-3-2 at 37 weeks 3 days admitted for induction of labor secondary to premature rupture of the membranes. POSTOPERATIVE DIAGNOSIS: A 35-year-old, G6, P2-0-3-2 at 37 weeks 3 days admitted for induction of labor secondary to premature rupture of the membranes. PROCEDURE: Normal spontaneous vaginal delivery. EBL: 200. ANESTHESIA: Epidural. COMPLICATION: None. NOTES AND FINDINGS: A live female delivered at 2344 hours, score 7 and 8. Weight is 3700 g. BRIEF HISTORY: She is a 35-year-old, G6, P2-0-3-2 at 37 weeks 3 days, who was having routine care, was complaining of leakage of fluid. AmniSure was done which was positive. As a result, she was admitted for induction of labor. Induction of labor was started with Pitocin. After the patient had Pitocin, AROM was done. An IUPC was placed. The patient had normal labor curve and she became fully dilated. DESCRIPTION OF PROCEDURE: With the patient being fully dilated, she was encouraged to push. With good pushing effort, she delivered the head. Subsequently, by the anterior and posterior shoulder, the body of the infant was delivered. Infant was placed on maternal abdomen. Delayed cord clamping was observed. The cord was clamped and cut. Cord blood gases were obtained. The cord was noted to be 3- vessel cord. The placenta was delivered via controlled cord traction. The perineum was inspected and noted to be intact. Uterus was noted to be well contracted. Pitocin was running after delivery of the baby. All instrument and pad counts were correct x2. The patient tolerated the procedure well and was left in Labor and Delivery room in stable condition. SOURAV / SILVIO /[id number]
--- NOTE | 2020-10-16 08:21 | PCM.PNPP ---
- General Info Date of Service: 10/16/20 Functional Status: Reports: Pain Controlled, Tolerating Diet, Ambulating, Urinating - Review of Systems General: Reports: No Symptoms HEENT: Reports: No Symptoms Pulmonary: Reports: No Symptoms Cardiovascular: Reports: No Symptoms Gastrointestinal: Reports: No Symptoms Genitourinary: Reports: No Symptoms Musculoskeletal: Reports: No Symptoms Skin: Reports: No Symptoms Neurological: Reports: No Symptoms Psychiatric: Reports: No Symptoms - General Info Date of Service: 10/16/20 - Patient Data Vital Signs - Most Recent: Last Vital Signs Temp 37.1 C 10/16/20 02:38 Pulse 86 10/16/20 02:38 Resp 16 10/16/20 02:38 BP 115/52 L 10/16/20 02:38 Pulse Ox 95 10/16/20 02:38 Weight - Most Recent: 100.698 kg Lab Results - Last 24 Hours: Laboratory Results - last 24 hr 10/15/20 10/15/20 10/15/20 Range/Units 12:25 12:34 12:34 WBC 10.63 (4.0-11.0) K/uL RBC 3.96 L (4.30-5.90) M/uL Hgb 10.2 L (12.0-16.0) g/dL Hct 32.7 L (36.0-46.0) % MCV 82.6 (80.0-98.0) fL MCH 25.8 L (27.0-32.0) pg MCHC 31.2 (31.0-37.0) g/dL RDW Std Deviation 46.3 (28.0-62.0) fl RDW Coeff of Katie 17 H (11.0-15.0) % Plt Count 259 (150-400) K/uL MPV 10.50 (7.40-12.00) fL Nucleated RBC % 0.3 /100WBC Nucleated RBCs # 0 K/uL Cord ABG pH (7.18-7.38) Cord ABG Base Excess (-10--2) Cord VBG pH (7.25-7.45) Cord VBG Base Excess (-10--2) SARS-CoV-2 RNA (JOSE) NEGATIVE (NEGATIVE) Blood Type B POSITIVE Antibody Screen NEGATIVE 10/15/20 10/15/20 Range/Units 23:44 23:44 WBC (4.0-11.0) K/uL RBC (4.30-5.90) M/uL Hgb (12.0-16.0) g/dL Hct (36.0-46.0) % MCV (80.0-98.0) fL MCH (27.0-32.0) pg MCHC (31.0-37.0) g/dL RDW Std Deviation (28.0-62.0) fl RDW Coeff of Katie (11.0-15.0) % Plt Count (150-400) K/uL MPV (7.40-12.00) fL Nucleated RBC % /100WBC Nucleated RBCs # K/uL Cord ABG pH 7.274 (7.18-7.38) Cord ABG Base Excess -7 (-10--2) Cord VBG pH 7.085 L (7.25-7.45) Cord VBG Base Excess -10 (-10--2) SARS-CoV-2 RNA (JOSE) (NEGATIVE) Blood Type Antibody Screen Med Orders - Current: Current Medications Acetaminophen (Tylenol Extra Strength) 500 mg PO Q4H PRN PRN Reason: Pain Acetaminophen (Tylenol Extra Strength) 1,000 mg PO Q4H PRN PRN Reason: Pain Last Admin: 10/16/20 07:43 Dose: 1,000 mg Documented by: Benzocaine/Menthol (Dermoplast Pain Relief 20%-0.5% [place]) 78 gm TOP ASDIRECTED PRN PRN Reason: Perineal Comfort Measure Last Admin: 10/16/20 01:35 Dose: 1 canister Documented by: Bisacodyl (Dulcolax) 10 mg RECTAL ONETIME PRN PRN Reason: Constipation Butorphanol Tartrate (Stadol) 1 mg IVPUSH Q1H PRN PRN Reason: Pain Carboprost Tromethamine (Hemabate Ds) 250 mcg IM ASDIRECTED PRN PRN Reason: Post Hemorrhage Docusate Sodium (Colace) 100 mg PO BID PRN PRN Reason: Constipation Emollient Ointment (Lansinoh Hpa) 0 gm TOP ASDIRECTED PRN PRN Reason: Sore Nipples Last Admin: 10/16/20 01:28 Dose: 1 tube Documented by: Oxytocin/Sodium Chloride (Oxytocin 30 Unit/500 Ml-Ns) 30 unit in 500 mls @ 500 mls/hr IV TITRATE DASHA Tranexamic Acid 1,000 mg/ (Sodium Chloride) 110 mls @ 660 mls/hr IV ONETIME PRN PRN Reason: Bleeding Lactated Ringer's (Ringers, Lactated) 1,000 mls @ 150 mls/hr IV ASDIRECTED DASHA Last Admin: 10/15/20 19:52 Dose: 150 mls/hr Documented by: Oxytocin/Sodium Chloride (Oxytocin 30 Unit/500 Ml-Ns) 30 unit in 500 mls @ 2 mls/hr IV TITRATE DASHA; Protocol Last Titration: 10/15/20 21:42 Dose: 18 munits/min, 18 mls/hr Documented by: Ibuprofen (Motrin) 400 mg PO Q4H PRN PRN Reason: Pain Ibuprofen (Motrin) 800 mg PO Q6H PRN PRN Reason: Pain Last Admin: 10/16/20 05:18 Dose: 800 mg Documented by: Lidocaine HCl (Xylocaine 1%) 50 ml INJECT ONETIME PRN PRN Reason: Laceration repair Methylergonovine Maleate (Methergine) 0.2 mg IM ASDIRECTED PRN PRN Reason: Post Hemorrhage Misoprostol (Cytotec) 200 mcg PO ONETIME PRN PRN Reason: Post Hemorrhage Oxycodone HCl (Oxycodone) 5 mg PO Q2H PRN PRN Reason: Pain Last Admin: 10/16/20 07:44 Dose: 5 mg Documented by: Sodium Chloride (Saline Flush) 10 ml FLUSH ASDIRECTED PRN PRN Reason: Keep Vein Open Sodium Chloride (Saline Flush) 2.5 ml FLUSH ASDIRECTED PRN PRN Reason: Keep Vein Open Sodium Chloride (Normal Saline) 10 ml IV ASDIRECTED PRN PRN Reason: IV Use Sterile Water (Sterile Water For Irrigation) 1,000 ml IRR ASDIRECTED PRN PRN Reason: delivery Witch Snow (Wayne) 1 pad TOP ASDIRECTED PRN PRN Reason: comfort care Last Admin: 10/16/20 01:28 Dose: 1 pad Documented by: Discontinued Medications Acetaminophen (Tylenol Extra Strength) 1,000 mg PO ONETIME ONE Stop: 10/15/20 18:46 Last Admin: 10/15/20 18:48 Dose: 1,000 mg Documented by: Bupivacaine HCl (Sensorcaine-Mpf 0.25%) Confirm Administered Dose 10 ml .ROUTE .STK-MED ONE Stop: 10/15/20 17:52 Fentanyl (Sublimaze) Confirm Administered Dose 100 mcg .ROUTE .STK-MED ONE Stop: 10/15/20 17:50 Fentanyl (Sublimaze) Confirm Administered Dose 100 mcg .ROUTE .STK-MED ONE Stop: 10/15/20 20:36 Fentanyl/Bupivacaine HCl (Fentanyl/Bupivacaine/Ns 2 Mcg-0.125% 250 Ml) Confirm Administered Dose 250 mls @ as directed .ROUTE .STK-MED ONE Stop: 10/15/20 17:51 Lidocaine/Epinephrine (Xylocaine-Mpf 2%-Epi 1:200,000) Confirm Administered Dose 20 ml .ROUTE .STK-MED ONE Stop: 10/15/20 20:36 Nalbuphine HCl (Nubain) 10 mg IVPUSH Q1H PRN PRN Reason: Pain (severe 7-10) - Infant Interaction Infant Disposition, : [facility] to Nursery Feeding: Breastfed Infant; Nursed Well Support Person: - Recovery Exam Fundal Tone: Firm Fundal Level: At Umbilicus Fundal Placement: Midline Lochia Amount: Small Lochia Color: Rubra/Red Perineum Description: Intact, Minimal Bruising/Swelling Episiotomy/Laceration: None Bladder Status: Voiding Urinary Elimination: Voided - Exam General: Alert, Oriented Neck: Supple Lungs: Normal Respiratory Effort GI/Abdominal Exam: Non-Tender, No Distention Extremities: Non-Tender, Pedal Edema (1+ bilateral) - Problem List Review Problem List Initiated/Reviewed/Updated: Yes - My Orders Last 24 Hours: My Active Orders 10/15/20 12:34 RPR (SYPHILIS SERO) W/ RFLX [REF] Routine 10/15/20 12:44 Patient Status [ADT] Routine February Shower [RC] ASDIRECTED Up ad Tiana [RC] ASDIRECTED Butorphanol [Stadol] 1 mg IVPUSH Q1H PRN Carboprost Tromethamine [Hemabate DS] 250 mcg IM ASDIRECTED PRN Lidocaine 1% [Xylocaine 1%] 50 ml INJECT ONETIME PRN Methylergonovine [Methergine] 0.2 mg IM ASDIRECTED PRN Sodium Chloride 0.9% [Normal Saline] 10 ml IV ASDIRECTED PRN Sodium Chloride 0.9% [Saline Flush] 10 ml FLUSH ASDIRECTED PRN Sodium Chloride 0.9% [Saline Flush] 2.5 ml FLUSH ASDIRECTED PRN Tranexamic Acid [Cyklokapron] 1,000 mg Sodium Chloride 0.9% [Normal Saline] 100 ml IV ONETIME Water For Irrigation,Sterile [Sterile Water for Irrigation] 1,000 ml IRR ASDIRECTED PRN miSOPROStoL [Cytotec] 200 mcg PO ONETIME PRN Peripheral IV Insertion Adult [OM.PC] Routine 10/15/20 12:45 Lactated Ringers [Ringers, Lactated] 1,000 ml IV ASDIRECTED Oxytocin/0.9 % Sodium Chloride [Oxytocin 30 Unit/500 ML-NS] 30 unit in 500 ml IV TITRATE 10/15/20 13:45 Oxytocin/0.9 % Sodium Chloride [Oxytocin 30 Unit/500 ML-NS] 30 unit in 500 ml IV TITRATE - Assessment Assessment:: 35yo P3033 s/p , PPD 1 stable minimal lochia, well - Plan Plan:: Continue care
[2020-10-17] MEDS: oxyCODONE 5 MG Tab PO PRN (06:48)
[2020-10-17] MEDS: Acetaminophen 500 MG Tab PO PRN (06:48)
[2020-10-17 07:56] VITALS: BP 121/71; PULSE 73
--- NOTE | 2020-10-17 08:17 | PCM.PNPP ---
- General Info Date of Service: 10/17/20 Functional Status: Reports: Pain Controlled, Tolerating Diet, Ambulating, Urinating - Review of Systems General: Reports: No Symptoms HEENT: Reports: No Symptoms Pulmonary: Reports: No Symptoms Cardiovascular: Reports: No Symptoms Gastrointestinal: Reports: No Symptoms Genitourinary: Reports: No Symptoms Musculoskeletal: Reports: No Symptoms Skin: Reports: No Symptoms Neurological: Reports: No Symptoms Psychiatric: Reports: No Symptoms - General Info Date of Service: 10/17/20 - Patient Data Vital Signs - Most Recent: Last Vital Signs Temp 36.2 C 10/17/20 07:55 Pulse 73 10/17/20 07:55 Resp 18 10/17/20 07:55 BP 121/71 10/17/20 07:55 Pulse Ox 98 10/17/20 07:55 Weight - Most Recent: 100.698 kg Lab Results - Last 24 Hours: Laboratory Results - last 24 hr 10/17/20 Range/Units 06:23 Hgb 10.7 L (12.0-16.0) g/dL Hct 35.0 L (36.0-46.0) % Med Orders - Current: Current Medications Acetaminophen (Tylenol Extra Strength) 500 mg PO Q4H PRN PRN Reason: Pain Acetaminophen (Tylenol Extra Strength) 1,000 mg PO Q4H PRN PRN Reason: Pain Last Admin: 10/17/20 06:48 Dose: 1,000 mg Documented by: Benzocaine/Menthol (Dermoplast Pain Relief 20%-0.5% [place]) 78 gm TOP ASDIRECTED PRN PRN Reason: Perineal Comfort Measure Last Admin: 10/16/20 01:35 Dose: 1 canister Documented by: Bisacodyl (Dulcolax) 10 mg RECTAL ONETIME PRN PRN Reason: Constipation Docusate Sodium (Colace) 100 mg PO BID PRN PRN Reason: Constipation Emollient Ointment (Lansinoh Hpa) 0 gm TOP ASDIRECTED PRN PRN Reason: Sore Nipples Last Admin: 10/16/20 01:28 Dose: 1 tube Documented by: Oxytocin/Sodium Chloride (Oxytocin 30 Unit/500 Ml-Ns) 30 unit in 500 mls @ 2 mls/hr IV TITRATE DASHA; Protocol Last Titration: 10/15/20 21:42 Dose: 18 munits/min, 18 mls/hr Documented by: Ibuprofen (Motrin) 400 mg PO Q4H PRN PRN Reason: Pain Ibuprofen (Motrin) 800 mg PO Q6H PRN PRN Reason: Pain Last Admin: 10/16/20 11:08 Dose: 800 mg Documented by: Oxycodone HCl (Oxycodone) 5 mg PO Q2H PRN PRN Reason: Pain Last Admin: 10/17/20 06:48 Dose: 5 mg Documented by: Sodium Chloride (Saline Flush) 10 ml FLUSH ASDIRECTED PRN PRN Reason: Keep Vein Open Sodium Chloride (Saline Flush) 2.5 ml FLUSH ASDIRECTED PRN PRN Reason: Keep Vein Open Sodium Chloride (Normal Saline) 10 ml IV ASDIRECTED PRN PRN Reason: IV Use Witch Snow (Tucks) 1 pad TOP ASDIRECTED PRN PRN Reason: comfort care Last Admin: 10/16/20 19:59 Dose: 1 pad Documented by: Discontinued Medications Acetaminophen (Tylenol Extra Strength) 1,000 mg PO ONETIME ONE Stop: 10/15/20 18:46 Last Admin: 10/15/20 18:48 Dose: 1,000 mg Documented by: Bupivacaine HCl (Sensorcaine-Mpf 0.25%) Confirm Administered Dose 10 ml .ROUTE .STK-MED ONE Stop: 10/15/20 17:52 Butorphanol Tartrate (Stadol) 1 mg IVPUSH Q1H PRN PRN Reason: Pain Carboprost Tromethamine (Hemabate Ds) 250 mcg IM ASDIRECTED PRN PRN Reason: Post Hemorrhage Fentanyl (Sublimaze) Confirm Administered Dose 100 mcg .ROUTE .STK-MED ONE Stop: 10/15/20 17:50 Fentanyl (Sublimaze) Confirm Administered Dose 100 mcg .ROUTE .STK-MED ONE Stop: 10/15/20 20:36 Oxytocin/Sodium Chloride (Oxytocin 30 Unit/500 Ml-Ns) 30 unit in 500 mls @ 500 mls/hr IV TITRATE DASHA Tranexamic Acid 1,000 mg/ (Sodium Chloride) 110 mls @ 660 mls/hr IV ONETIME PRN PRN Reason: Bleeding Lactated Ringer's (Ringers, Lactated) 1,000 mls @ 150 mls/hr IV ASDIRECTED DASHA Last Admin: 10/15/20 19:52 Dose: 150 mls/hr Documented by: Fentanyl/Bupivacaine HCl (Fentanyl/Bupivacaine/Ns 2 Mcg-0.125% 250 Ml) Confirm Administered Dose 250 mls @ as directed .ROUTE .STK-MED ONE Stop: 10/15/20 17:51 Lidocaine HCl (Xylocaine 1%) 50 ml INJECT ONETIME PRN PRN Reason: Laceration repair Lidocaine/Epinephrine (Xylocaine-Mpf 2%-Epi 1:200,000) Confirm Administered Dose 20 ml .ROUTE .STK-MED ONE Stop: 10/15/20 20:36 Methylergonovine Maleate (Methergine) 0.2 mg IM ASDIRECTED PRN PRN Reason: Post Hemorrhage Misoprostol (Cytotec) 200 mcg PO ONETIME PRN PRN Reason: Post Hemorrhage Nalbuphine HCl (Nubain) 10 mg IVPUSH Q1H PRN PRN Reason: Pain (severe 7-10) Sterile Water (Sterile Water For Irrigation) 1,000 ml IRR ASDIRECTED PRN PRN Reason: delivery - Infant Interaction Disposition, : Veteran to Nursery Infant Feeding: Breastfed Infant; Nursed Well Support Person: - Recovery Exam Fundal Tone: Firm Fundal Level: At Umbilicus Fundal Placement: Midline Lochia Amount: Scant Lochia Color: Rubra/Red Perineum Description: Intact, Minimal Bruising/Swelling Episiotomy/Laceration: None Bladder Status: Voiding Urinary Elimination: Voided - Exam General: Alert, Oriented Lungs: Normal Respiratory Effort GI/Abdominal Exam: Soft, Non-Tender, No Distention, Pelvis Stable Extremities: Non-Tender, No Pedal Edema, Pedal Edema (1+) Skin: Warm, Dry, Intact Psy/Mental Status: Alert, Normal Affect, Normal Mood - Problem List & Annotations (1) Vaginal delivery SNOMED Code(s): 531800173 Code(s): O80 - ENCOUNTER FOR FULL-TERM UNCOMPLICATED DELIVERY Status: Acute Current Visit: No - Problem List Review Problem List Initiated/Reviewed/Updated: Yes - Assessment Assessment:: 35yo [id number] s/p , PPD2 after , stable, minimal lochia, is going well. - Plan Plan:: Discharge instructions reviewed, patient is frustrated with peds critique of her . She is experienced with and it is going well. Baby has good wet diapers. She would like to be discharged. Precautions reviewed.
[2020-10-17] MEDS: Lanolin 100% Cream 7 GM Tube TOP PRN (10:21)
[2020-10-17] MEDS: Ibuprofen 800 MG Tab PO PRN (10:21)
== END 2020-10-17 10:50 | disposition home or self-care (01) | DRG 807 ==
LOC: MW.OBCHECK 12:11 → MW.OB 12:12 → OBSVTOIN 23:54 → MW.OB 10-16 02:44
PROVIDERS: ADMIT Obstetrics & Gynecology; ATTEND Obstetrics & Gynecology
PROC: 10E0XZZ Delivery of Products of Conception, External Approach (ICD-10-PCS; principal; 2020-10-15)
PROC: 10907ZC Drainage of Amniotic Fluid, Therapeutic from Products of Conception, Via Natural or Artificial Opening (ICD-10-PCS; 2020-10-15)
PROC: 3E033VJ Introduction of Other Hormone into Peripheral Vein, Percutaneous Approach (ICD-10-PCS; 2020-10-15)
PROC: 10H07YZ Insertion of Other Device into Products of Conception, Via Natural or Artificial Opening (ICD-10-PCS; 2020-10-15)
PROC: 3E0R3BZ Introduction of Anesthetic Agent into Spinal Canal, Percutaneous Approach (ICD-10-PCS; 2020-10-15)
PROC: 00HU33Z Insertion of Infusion Device into Spinal Canal, Percutaneous Approach (ICD-10-PCS; 2020-10-15)
DX: O42.92 Full-term premature rupture of membranes, unspecified as to length of time between rupture and onset of labor (principal); Z37.0 Single live birth; O99.02 Anemia complicating childbirth; D64.9 Anemia, unspecified; O99.344 Other mental disorders complicating childbirth; F41.9 Anxiety disorder, unspecified; F32.9 Major depressive disorder, single episode, unspecified; F90.9 Attention-deficit hyperactivity disorder, unspecified type; Z20.822 Contact with and (suspected) exposure to COVID-19; Z3A.37 37 weeks gestation of pregnancy; Z88.2 Allergy status to sulfonamides; Z88.5 Allergy status to narcotic agent; Z87.891 Personal history of nicotine dependence
CPT/HCPCS: 36415; 51702; 59025; 59409; 82803; 85014; 85018; 85027; 86592; 86850; 86900; 86901; A9270-GY; J2590; J7120; U0002

== ENCOUNTER 2020-12-16 08:33 | Day surgery (SDC) | payer OTHER ==
[~2020-12-16 08:33] MED LIST: Bupivacaine 0.5% 10 ML SDV ONE; Dexamethasone 4 MG/ML 5 ML MDV ONE; Lactated Ringers 1,000 ML IV SCH; Midazolam 1 MG/ML 2 ML SDV ONE; Octyl 2-Cyanoacrylate 1 Tube ONE; Ondansetron 4 MG/2 ML SDV ONE; Propofol 200 MG/20 ML SDV ONE; Sodium Chloride 0.9% 0 ML ONE; Sodium Chloride 0.9% 10 ML SDV IV PRN; Sodium Chloride 0.9% 10 ML Syringe FLUSH PRN; Sodium Chloride 0.9% 2.5 ML Syringe FLUSH PRN; ceFAZolin 1 GM Vial ONE; ceFAZolin 2 GM in Premix Bag 1 BAG IV ONE; fentaNYL 250 MCG/5 ML SDV ONE
[2020-12-16] MEDS ORDERED: fentaNYL 250 MCG/5 ML SDV ONE (08:42)
[2020-12-16] MEDS ORDERED: Lidocaine 2% 5 ML SDV ONE (08:42)
[2020-12-16] MEDS ORDERED: Dexamethasone 4 MG/ML 5 ML MDV ONE (08:42)
[2020-12-16] MEDS ORDERED: Midazolam 1 MG/ML 2 ML SDV ONE (08:42)
[2020-12-16] MEDS ORDERED: Ondansetron 4 MG/2 ML SDV ONE (08:42)
[2020-12-16] MEDS ORDERED: Propofol 200 MG/20 ML SDV ONE ×3 (08:42)
--- NOTE | 2020-12-16 08:58 | PCM.PREANE ---
Preanesthetic Assessment - Anesthesia/Transfusion/Family Hx Anesthesia History: Prior Anesthesia Without Reaction Transfusion History: Prior Transfusion Without Reaction - Review of Systems General: No Symptoms Pulmonary: No Symptoms Cardiovascular: No Symptoms Gastrointestinal: No Symptoms Neurological: No Symptoms Other: Reports: None - Physical Assessment NPO Status Date: 12/15/20 NPO Status Time: 22:00 Height: 1.61 m Weight: 92.079 kg ASA Class: 2 Mental Status: Alert & Oriented x3 Airway Class: Mallampati = 2 Dentition: Reports: Normal Dentition Thyro-Mental Finger Breadths: 3 Mouth Opening Finger Breadths: 3 (small mouth) - Allergies Allergies/Adverse Reactions: Allergies Allergy/AdvReac Type Severity Reaction Status Date / Time diphenhydramine HCl Allergy Difficulty Verified 12/10/20 07:49 [From Benadryl] Breathing Sulfa (Sulfonamide Allergy Hives Verified 12/10/20 07:49 Antibiotics) - Acknowledgements Anesthesia Type Planned: General Anesthesia Pt an Appropriate Candidate for the Planned Anesthesia: Yes Alternatives and Risks of Anesthesia Discussed w Pt/Guardian: Yes Pt/Guardian Understands and Agrees with Anesthesia Plan: Yes PreAnesthesia Questionnaire HEENT History: Reports: None Cardiovascular History: Reports: None Respiratory History: Reports: None Other Respiratory History: H&P states hx of pulmonary infiltrates Gastrointestinal History: Reports: GERD (during . 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 Musculoskeletal History: Reports: None Neurological History: Reports: Migraines Psychiatric History: Reports: ADHD, Anxiety, Depression, Other (See Below) Other Psychiatric History: hx post psychosis Endocrine/Metabolic History: Reports: Obesity/BMI 30+ Hematologic History: Reports: Blood Transfusion(s) Other Hematologic History: blood transfusion following surgery for molar Immunologic History: Reports: None Oncologic (Cancer) History: Reports: None Dermatologic History: Reports: None - Infectious Disease History Infectious Disease History: Reports: Herpes, Other (See Below) (COVID NEGATIVE) - Past Surgical History Head Surgeries/Procedures: Reports: None HEENT Surgical History: Reports: None Cardiovascular Surgical History: Reports: None Respiratory Surgical History: Reports: None GI Surgical History: Reports: None Female Surgical History: Reports: D&C Other Female Surgeries/Procedures: hx laparoscopy for ovarian torsion, hx molar Endocrine Surgical History: Reports: None Neurological Surgical History: Reports: None Musculoskeletal Surgical History: Reports: None Oncologic Surgical History: Reports: None Dermatological Surgical History: Reports: None - History Comment History Comment: body piercings. lower lip piercing has been tape. - SUBSTANCE USE Tobacco Use Status *Q: Former Tobacco User Tobacco Use Within Last Twelve Months: No - HOME MEDS Home Medications: Home Meds Acyclovir 400 mg PO BID 10/15/20 [History] Omeprazole Magnesium [Prilosec Otc] 20 mg PO DAILY 10/15/20 [History] Pnv,Calcium 72/Iron,Carb/Folic [ Plus Iron Tablet] 1 tab PO DAILY 10/15/20 [History] Sertraline HCl 100 mg PO DAILY 10/15/20 [History] - CURRENT (IN HOUSE) MEDS Current Meds: Current Medications Lactated Ringer's (Ringers, Lactated) 1,000 mls @ 125 mls/hr IV ASDIRECTED DASHA Sodium Chloride (Saline Flush) 10 ml FLUSH ASDIRECTED PRN PRN Reason: Keep Vein Open Sodium Chloride (Saline Flush) 2.5 ml FLUSH ASDIRECTED PRN PRN Reason: Keep Vein Open Sodium Chloride (Normal Saline) 10 ml IV ASDIRECTED PRN PRN Reason: IV Use Discontinued Medications Cefazolin Sodium/Dextrose 2 gm (/ Premix) 50 mls @ 100 mls/hr IV ONETIME ONE Stop: 12/15/20 11:19
[2020-12-16] MEDS ORDERED: Ketorolac 30 MG/ML SDV ONE (09:53)
--- NOTE | 2020-12-16 10:25 | PCM.OPNOTE ---
- General Post-Op/Procedure Note Date of Surgery/Procedure: 12/16/20 Operative Procedure(s): Umbilical hernia repair Findings: 6mm umbilical hernia containing fat Pre Op Diagnosis: Umbilical hernia Post-Op Diagnosis: Same Anesthesia Technique: General LMA, Local Primary Surgeon: Sayda Powers Fluid Replacement, Intraop: 700 EBL in mLs: 3 Condition: Good
--- NOTE | 2020-12-16 10:53 | PCM.POSTAN ---
POST ANESTHESIA ASSESSMENT - MENTAL STATUS Mental Status: Alert, Oriented - VITAL SIGNS Vital Signs: Last Vital Signs Temp 36.6 C 12/16/20 10:13 Pulse 64 12/16/20 10:50 Resp 12 12/16/20 10:50 BP 119/66 12/16/20 10:50 Pulse Ox 95 12/16/20 10:50 - RESPIRATORY Respiratory Status: Respiratory Rate WNL, Airway Patent, O2 Saturation Stable - CARDIOVASCULAR CV Status: Pulse Rate WNL, Blood Pressure Stable - PAIN Pain Score: 0 - POST OP HYDRATION Hydration Status: Adequate & Stable - OBSERVATIONS Free Text/Narrative:: The patient tolerated the procedure well. There were no apparent anesthetic complications at this time. Discharge per criteria.
--- NOTE | 2020-12-16 11:18 | OR ---
SURGEON: SAYDA POWERS MD DATE OF PROCEDURE: 12/16/2020 PREOPERATIVE DIAGNOSIS: Umbilical hernia, reducible. POSTOPERATIVE DIAGNOSIS: Umbilical hernia, reducible. PROCEDURE PERFORMED: Umbilical hernia repair. PRIMARY SURGEON: Sayda Powers MD. ANESTHESIA: General LMA, local. FLUIDS: 700 mL crystalloid. ESTIMATED BLOOD LOSS: 3 mL. FINDINGS: 6 mm fascial defect just to the left of the umbilical stalk. The hernia sac contained fat and was reducible. COMPLICATIONS: None. INDICATIONS: The patient is a 35-year-old female who presents with a symptomatic umbilical hernia. The patient and I discussed the need for a surgical repair. I explained the procedure both with and without mesh. I explained the risks including bleeding, infection, or damage to surrounding structures. She verbalized understanding and wishes to proceed. PROCEDURE IN DETAIL: The patient was brought into the OR and placed on the OR table in supine position. A time-out was completed verifying the patient's name, age, date of , allergies, and procedure to be performed. General LMA anesthesia was induced. The abdomen was prepped and draped in usual standard fashion. The hernia sac appeared to be just left of the umbilical stalk. I anesthetized the area along the left lateral umbilical fold with 0.5% Marcaine plain. A 15 blade was used to make an incision along this fold. Cautery was used to dissect down to the level of subcutaneous fat. I immediately encountered a large globular hernia sac. This hernia sac was thin and was being contained fat. I grasped the top of the hernia sac and dissected around the sac using a Metzenbaum scissors as well as gentle blunt dissection. The hernia sac was from the surrounding tissue down to the level of the fascia. Once I reached the fascia, I then used gentle blunt dissection and sharp dissection to free up the hernia sac from the surrounding fascia. I did enter the sac. It appeared to contain fat. After entering the sac, I was able to reduce the hernia back into the abdomen. The fascial defect was measured. It measured 6 mm in size. Interrupted 0 Ethibond sutures were used to close the fascial defect. A Valsalva maneuver was performed. The repair appeared to be intact. The hemostasis was achieved using electrocautery. The wound was then closed with interrupted 3-0 Vicryl in the subcutaneous fat layer and the skin was closed with a running 4-0 Monocryl stitch. Dermabond and sterile dressings were applied. The patient tolerated the procedure well and was transferred to the PACU in stable condition. All counts were complete and correct at the end of the case. EMILIA ANGUIANO /[id number]
--- NOTE | 2020-12-16 11:26 | PCM48HPAN ---
Post Anesthesia Note - EVALUATION WITHIN 48HRS OF ANESTHETIC Vital Signs in Normal Range: Yes Patient Participated in Evaluation: Yes Respiratory Function Stable: Yes Airway Patent: Yes Cardiovascular Function Stable: Yes Hydration Status Stable: Yes Pain Control Satisfactory: Yes Nausea and Vomiting Control Satisfactory: Yes Mental Status Recovered: Yes Vital Signs: Last Vital Signs Temp 36.6 C 12/16/20 10:13 Pulse 64 12/16/20 10:50 Resp 12 12/16/20 10:50 BP 119/66 12/16/20 10:50 Pulse Ox 95 12/16/20 10:50 - COMMENTS/OBSERVATIONS Free Text/Narrative:: The patient wants to go home. She has no complaints at this time. There were no apparent anesthetic complications at this time. Discharge home per criteria.
[2020-12-16 14:14] VITALS: BP 110/70; PULSE 62
== END 2020-12-16 11:40 | disposition home or self-care (01) ==
LOC: MW.SDS 08:33
PROVIDERS: ATTEND Surgery
DX: K42.9 Umbilical hernia without obstruction or gangrene (principal); M62.08 Separation of muscle (nontraumatic), other site; E66.9 Obesity, unspecified; Z88.2 Allergy status to sulfonamides; Z88.8 Allergy status to other drugs, medicaments and biological substances; Z98.890 Other specified postprocedural states; Z87.891 Personal history of nicotine dependence; Z79.899 Other long term (current) drug therapy; Z68.35 Body mass index [BMI] 35.0-35.9, adult
CPT/HCPCS: 00750; 81025; A9270-GY; J0131; J0690; J1100; J1885; J2250; J2405; J2704; J3010; J3490; J7120

== ENCOUNTER 2022-05-03 05:15 | Emergency (ER) | payer BC, OTHER ==
[2022-05-03] MEDS ORDERED: Ondansetron 4 MG/2 ML SDV IVPUSH ONE (05:25)
[2022-05-03] MEDS ORDERED: Sodium Chloride 0.9% 1,000 ML IV ONE (05:25)
[2022-05-03] MEDS ORDERED: Morphine 4 MG/ML VIAL IVPUSH ONE ×2 (05:25→07:10)
[2022-05-03 05:57] LABS: CARBON DIOXIDE,CO2 26.9 mmol/L (21.0-32.0); POTASSIUM,K 4.1 mmol/L (3.5-5.1)
[2022-05-03] MEDS ORDERED: Iopamidol 755 MG/ML 500 ML Multipack Bottle IVPUSH ONE (06:15)
[2022-05-03] MEDS ORDERED: Lactated Ringers 1,000 ML IV ONE (10:15)
[2022-05-03] MEDS ORDERED: oxyCODONE 5 MG Tab PO ONE (11:33)
[2022-05-03] MEDS ORDERED: Ondansetron 4 MG Tab PO ONE (11:34)
[2022-05-03 12:38] VITALS: BP 108/70
[2022-05-03 12:39] VITALS: PULSE 62
== END 2022-05-03 12:52 | disposition home or self-care (01) ==
LOC: MW.ED 05:15
DX: K85.90 Acute pancreatitis without necrosis or infection, unspecified (principal); E66.9 Obesity, unspecified; Z88.8 Allergy status to other drugs, medicaments and biological substances; Z88.2 Allergy status to sulfonamides; Z68.29 Body mass index [BMI] 29.0-29.9, adult
CPT/HCPCS: 36415; 74177; 76705; 80053; 81003; 81025; 83690; 85025; 93005; 96361; 96374; 96375; 96376; 99284; A9270; J2270; J2405; J7030; J7120; Q9967

== ENCOUNTER 2023-01-25 18:31 | Emergency (ER) | payer BC | END 2023-01-25 19:05 | disposition left against medical advice (07) | LOC: MW.ED 18:31 | DX: Z53.21 Procedure and treatment not carried out due to patient leaving prior to being seen by health care provider (principal) ==

== ENCOUNTER 2023-05-16 20:59 | Emergency (ER) | payer BC ==
[2023-05-16 21:59] LABS: BILIRUBIN,URINE NEGATIVE (NEGATIVE); GLUCOSE,URINE NEGATIVE (NEGATIVE); KETONES,URINE TRACE mg/dL (NEGATIVE); LEUKOCYTE ESTERASE,URINE SMALL (NEGATIVE); NITRITE,URINE NEGATIVE (NEGATIVE); OCCULT BLOOD,URINE LARGE (NEGATIVE); PROTEIN,URINE >=300 mg/dL (NEGATIVE); UROBILINOGEN,URINE 0.2 EU/dL (<2.0)
[2023-05-16 22:05] LABS: APPEARANCE,URINE BLOODY; COLOR,URINE RED
[2023-05-16 22:06] LABS: RBC,URINE TOO NUMEROUS TO CT (0-2/HPF); WBC,URINE 50-75 (0-5/HPF)
[2023-05-16 22:08] LABS: BACTERIA,URINE 2+ (NEGATIVE); EPITHELIAL CELLS,URINE FEW (NONE-FEW)
[2023-05-16 22:48] LABS: BASOPHILS PERCENT AUTO 0.1 % (0.0-1.5); EOSINOPHILS ABSOLUTE AUTO 0.1 K/uL (0.0-0.7); EOSINOPHILS PERCENT AUTO 0.5 % (0.0-7.0); HEMATOCRIT 36.7 % (36.0-46.0); HEMOGLOBIN 12.4 g/dL (12.0-16.0); LYMPHOCYTES ABSOLUTE AUTO 1.6 K/uL (0.6-2.4); LYMPHOCYTES PERCENT AUTO 10.8 % (16.0-40.0); MEAN CORPUSCULAR HEMOGLOBIN 29.2 pg (27.0-32.0); MEAN CORPUSCULAR HGB CONC 33.8 g/dL (31.0-37.0); MEAN CORPUSCULAR VOLUME 86.4 fL (80.0-98.0); MONOCYTES ABSOLUTE AUTO 0.8 K/uL (0.0-0.8); MONOCYTES PERCENT AUTO 5.4 % (0.0-15.0); NEUTROPHILS ABSOLUTE AUTO 12.4 K/uL (1.4-5.7); NEUTROPHILS PERCENT AUTO 83.2 % (48.0-80.0); NRBC ABSOLUTE 0 K/uL; PLATELET COUNT,PLT 318 K/uL (150-400); RED BLOOD CELL COUNT 4.25 M/uL (4.30-5.90); WHITE BLOOD CELL COUNT,WBC 14.94 K/uL (4.0-11.0)
[2023-05-16 23:03] LABS: CALCIUM 8.7 mg/dL (8.5-10.1); CARBON DIOXIDE,CO2 24.9 mmol/L (21.0-32.0); CREATININE 0.8 mg/dL (0.6-1.0); EST CRCL DRUG DOSING (CG) 78.87 mL/min; POTASSIUM,K 3.5 mmol/L (3.5-5.1)
[2023-05-17 00:24] VITALS: BP 117/77; PULSE 78
== END 2023-05-17 00:23 | disposition home or self-care (01) ==
LOC: MW.ED 20:59
DX: N39.0 Urinary tract infection, site not specified (principal); E66.9 Obesity, unspecified; Z88.8 Allergy status to other drugs, medicaments and biological substances; Z88.1 Allergy status to other antibiotic agents; Z68.31 Body mass index [BMI] 31.0-31.9, adult
CPT/HCPCS: 36415; 80048; 81001; 85025; 87086; 99283

== ENCOUNTER 2024-09-04 23:56 | Emergency (ER) | payer BC ==
[2024-09-05] MEDS: Fluorescein 1 MG Ophth Strip EYEBOTH ONE (00:23)
[2024-09-05] MEDS: Erythromycin Base 0.5% Ophth Oint 1 GM Tube EYERT ONE (00:23)
[2024-09-05] MEDS: Tetracaine HCl/PF 0.5% 4 ML Bottle EYERT ONE (00:23)
[2024-09-05 00:41] VITALS: BP 130/90; PULSE 71
== END 2024-09-05 00:38 | disposition home or self-care (01) ==
LOC: MW.ED 23:56
DX: S05.01XA Injury of conjunctiva and corneal abrasion without foreign body, right eye, initial encounter (principal); E66.9 Obesity, unspecified; K21.9 Gastro-esophageal reflux disease without esophagitis; Z79.899 Other long term (current) drug therapy; Z88.2 Allergy status to sulfonamides; Z88.8 Allergy status to other drugs, medicaments and biological substances; W50.0XXA Accidental hit or strike by another person, initial encounter; Z68.27 Body mass index [BMI] 27.0-27.9, adult
CPT/HCPCS: 99283; A9270; J3490